=== PATIENT | female | born 1960 | race Caucasian/White ===

== ENCOUNTER 2017-12-07 10:20 | Emergency (ER) | payer OTHER ==
[~2017-12-07] VITALS: Ht 172.7 cm; Wt 77.1 kg
[2017-12-07] MEDS ORDERED: GLUCAGON HYDROCHLORIDE (RDNA) 1 MG VIAL IM ONE (11:30)
[2017-12-07 15:06] VITALS: BP 138/76
== END 2017-12-07 15:07 | disposition home or self-care (01) ==
LOC: ER 10:20
DX: T17.208A Unspecified foreign body in pharynx causing other injury, initial encounter (principal); J45.909 Unspecified asthma, uncomplicated; E78.5 Hyperlipidemia, unspecified; F17.210 Nicotine dependence, cigarettes, uncomplicated; X58.XXXA Exposure to other specified factors, initial encounter; Y93.89 Activity, other specified; Y99.8 Other external cause status; Y92.89 Other specified places as the place of occurrence of the external cause
CPT/HCPCS: 71046; 96372; 99284; J1610

== ENCOUNTER 2018-07-12 14:21 | Emergency (ER) | payer OTHER ==
[~2018-07-12] VITALS: Ht 172.7 cm; Wt 79.8 kg
[2018-07-12 16:02] VITALS: BP 137/81
[2018-07-12] MEDS ORDERED: METHOCARBAMOL 500 MG TAB PO ONE (16:45)
[2018-07-12] MEDS ORDERED: KETOROLAC TROMETH 60MG/2ML VIAL IM ONE (16:45)
== END 2018-07-12 17:21 | disposition home or self-care (01) ==
LOC: ER 14:25
DX: M54.31 Sciatica, right side (principal); J45.909 Unspecified asthma, uncomplicated; E78.5 Hyperlipidemia, unspecified; F17.210 Nicotine dependence, cigarettes, uncomplicated; Z86.73 Personal history of transient ischemic attack (TIA), and cerebral infarction without residual deficits; Z90.89 Acquired absence of other organs; Z88.8 Allergy status to other drugs, medicaments and biological substances
CPT/HCPCS: 96372; 99283; J1885

== ENCOUNTER 2020-12-01 00:06 | Emergency (ER) | payer OTHER ==
[~2020-12-01] VITALS: Ht 170.2 cm; Wt 79.8 kg
[2020-12-01 00:31] VITALS: BP 147/103
== END 2020-12-01 01:39 | disposition left against medical advice (07) ==
LOC: ER 00:06
DX: T17.228A Food in pharynx causing other injury, initial encounter (principal); Z53.21 Procedure and treatment not carried out due to patient leaving prior to being seen by health care provider; X58.XXXA Exposure to other specified factors, initial encounter; Y93.9 Activity, unspecified; Y92.89 Other specified places as the place of occurrence of the external cause; Y99.8 Other external cause status
CPT/HCPCS: 70490

== ENCOUNTER 2021-01-20 11:38 | Emergency (ER) | payer OTHER ==
[~2021-01-20] VITALS: Ht 172.7 cm; Wt 79.4 kg
[2021-01-20] MEDS ORDERED: ASPirin 81 mg TAB PO ONE (12:00)
[2021-01-20 12:29] LABS: Basophils # (auto) 0.1 10 ^3/uL (0-0.2); Basophils % (auto) 1.2 % (0.0-2.0); Eosinophils # (auto) 0.2 10 ^3/uL (0-0.8); Eosinophils % (auto) 2.2 % (0.0-7.0); Hematocrit 48.4 % (36.0-46.0); Hemoglobin 16.3 g/dL (12.2-16.2); Lymphocytes # (auto) 2.2 10 ^3/uL (0.4-5.4); Lymphocytes % (auto) 30.6 % (10.0-50.0); Mean Corpuscular Hemoglobin 32.4 pg (28.0-32.0); Mean Corpuscular Hgb Conc. 33.7 g/dL (32.0-36.0); Monocytes # (auto) 0.6 10 ^3/uL (0-1.3); Neutrophils # (auto) 4.1 10 ^3/uL (1.6-8.6); Nucleated Red Blood Cells % 0.2 %; Red Blood Cells 5.04 10^6/uL (4.0-5.20); White Blood Cell 7.1 10^3/uL (4.4-10.8)
[2021-01-20 12:47] LABS: Albumin 3.7 g/dL (3.4-5.0); Calcium 8.6 mg/dL (8.5-10.1); Potassium 4.4 mmol/L (3.5-5.1)
[2021-01-20 12:55] LABS: BUN/Creatinine Ratio 16.5; Bilirubin, Total 0.4 mg/dL (0.2-1.0); Magnesium 2.6 mg/dL (1.6-2.6); Total Protein 7.2 g/dL (6.4-8.2)
[2021-01-20 15:05] VITALS: BP 152/86
== END 2021-01-20 15:33 | disposition home or self-care (01) ==
LOC: ER 11:38
DX: R07.89 Other chest pain (principal); E78.5 Hyperlipidemia, unspecified; J45.909 Unspecified asthma, uncomplicated; F17.210 Nicotine dependence, cigarettes, uncomplicated; Z90.89 Acquired absence of other organs
CPT/HCPCS: 36415; 71046; 80053; 83735; 84484; 85025; 93005

== ENCOUNTER 2021-02-09 15:33 | Emergency (ER) | payer OTHER ==
[~2021-02-09] VITALS: Ht 172.7 cm; Wt 77.1 kg
[2021-02-09] MEDS ORDERED: ASPirin 81 mg TAB PO ONE (16:00)
[2021-02-09 16:54] LABS: Basophils # (auto) 0.1 10 ^3/uL (0-0.2); Basophils % (auto) 1.2 % (0.0-2.0); Eosinophils # (auto) 0.3 10 ^3/uL (0-0.8); Eosinophils % (auto) 3.2 % (0.0-7.0); Hemoglobin 15.3 g/dL (12.2-16.2); Lymphocytes # (auto) 2.2 10 ^3/uL (0.4-5.4); Lymphocytes % (auto) 27.5 % (10.0-50.0); Mean Corpuscular Hemoglobin 32.3 pg (28.0-32.0); Mean Corpuscular Hgb Conc. 34.1 g/dL (32.0-36.0); Mean Corpuscular Volume 94.9 fL (80.0-100.0); Monocytes # (auto) 0.7 10 ^3/uL (0-1.3); Monocytes % (auto) 8.7 % (0.0-12.0); Neutrophils # (auto) 4.8 10 ^3/uL (1.6-8.6); Neutrophils % (auto) 59.4 % (37.0-80.0); Nucleated Red Blood Cells % 0.1 %; Red Blood Cells 4.74 10^6/uL (4.0-5.20); Red Cell Distribution Width 12.9 % (11.8-14.3)
[2021-02-09 17:14] LABS: Albumin 3.5 g/dL (3.4-5.0); Calcium 8.3 mg/dL (8.5-10.1); Magnesium 2.9 mg/dL (1.6-2.6); Potassium 4.5 mmol/L (3.5-5.1)
[2021-02-09 17:21] LABS: Bilirubin, Total 0.2 mg/dL (0.2-1.0); Total Protein 6.6 g/dL (6.4-8.2)
[2021-02-09 18:08] VITALS: BP 136/82
== END 2021-02-09 18:08 | disposition home or self-care (01) ==
LOC: ER 15:33
DX: R07.89 Other chest pain (principal); J45.909 Unspecified asthma, uncomplicated; E78.5 Hyperlipidemia, unspecified; F17.210 Nicotine dependence, cigarettes, uncomplicated; Z86.73 Personal history of transient ischemic attack (TIA), and cerebral infarction without residual deficits; Z90.49 Acquired absence of other specified parts of digestive tract; Z90.89 Acquired absence of other organs; Z88.8 Allergy status to other drugs, medicaments and biological substances
CPT/HCPCS: 36415; 71046; 80053; 83735; 83880; 84484; 85025; 93005

== ENCOUNTER 2021-07-18 18:00 | Emergency (ER) | payer OTHER ==
[~2021-07-18] VITALS: Ht 172.7 cm; Wt 77.1 kg
[2021-07-18 20:21] LABS: Basophils # (auto) 0.1 10 ^3/uL (0-0.2); Basophils % (auto) 1.3 % (0.0-2.0); Eosinophils # (auto) 0.2 10 ^3/uL (0-0.8); Eosinophils % (auto) 1.6 % (0.0-7.0); Hematocrit 46.4 % (36.0-46.0); Lymphocytes # (auto) 2.3 10 ^3/uL (0.4-5.4); Lymphocytes % (auto) 23.6 % (10.0-50.0); Mean Corpuscular Hemoglobin 33.2 pg (28.0-32.0); Mean Corpuscular Hgb Conc. 34.6 g/dL (32.0-36.0); Mean Corpuscular Volume 95.9 fL (80.0-100.0); Monocytes # (auto) 0.6 10 ^3/uL (0-1.3); Monocytes % (auto) 6.4 % (0.0-12.0); Neutrophils # (auto) 6.7 10 ^3/uL (1.6-8.6); Neutrophils % (auto) 67.1 % (37.0-80.0); Nucleated Red Blood Cells % 0.1 %; Red Blood Cells 4.84 10^6/uL (4.0-5.20); Red Cell Distribution Width 13.2 % (11.8-14.3); White Blood Cell 9.9 10^3/uL (4.4-10.8)
[2021-07-18 20:40] LABS: Albumin 3.7 g/dL (3.4-5.0); Calcium 8.8 mg/dL (8.5-10.1); Magnesium 2.7 mg/dL (1.6-2.6); Potassium 4.3 mmol/L (3.5-5.1)
[2021-07-18 20:43] LABS: BUN/Creatinine Ratio 17.8; Bilirubin, Total 0.2 mg/dL (0.2-1.0); Total Protein 7.3 g/dL (6.4-8.2)
[2021-07-18 23:55] VITALS: BP 158/91
== END 2021-07-19 01:03 | disposition home or self-care (01) ==
LOC: ER 18:00
DX: T18.128A Food in esophagus causing other injury, initial encounter (principal); X58.XXXA Exposure to other specified factors, initial encounter; Y93.89 Activity, other specified; Y92.89 Other specified places as the place of occurrence of the external cause; Y99.8 Other external cause status; F17.210 Nicotine dependence, cigarettes, uncomplicated; J45.909 Unspecified asthma, uncomplicated; E78.5 Hyperlipidemia, unspecified; Z86.73 Personal history of transient ischemic attack (TIA), and cerebral infarction without residual deficits; Z90.89 Acquired absence of other organs
CPT/HCPCS: 36415; 71046; 80053; 83735; 83880; 84484; 85025; 93005